=== PATIENT | female | born 1995 | race Two or more races ===

== ENCOUNTER 2024-12-05 13:36 | Emergency (ER) | payer BC, SELFPAY ==
--- NOTE | ~2024-12-05 | US_ITS ---
EXAMINATION: US OBSTETRICAL ULTRASOUND CLINICAL INFORMATION: Early , pelvic pain, rule out ectopic. COMPARISON: None available. LMP: 10/17/2024.. Gestational age by maternal dates is 5 weeks and 6 days. Estimated date of delivery by maternal dates is 08/01/2025. TECHNIQUE: Ultrasound of the maternal pelvis is performed using transabdominal and transvaginal transducers. Transvaginal imaging is performed due to inadequate visualization transabdominally. M-mode Doppler is also performed. FINDINGS: There is a single intrauterine gestational sac with visible yolk sac, embryo/fetus, and cardiac activity. There is no significant subchorionic hemorrhage or hematoma. HR: 122 beats per minute. CRL (crown rump length): 0.50 cm (6 weeks and 2 days, +/- 4 days). BARB = 07/29/2025. MATERNAL ADNEXA: The right maternal ovary measures 4.8 x 3.7 x 2.1 cm. Volume = 19.3 mL. Normal sonographic appearance. The left maternal ovary measures 2.9 x 2.7 x 1.3 cm. Volume = 5.4 mL. Normal sonographic appearance. There is no significant maternal adnexal mass. Trace fluid in the cul-de-sac, likely physiologic. US/US OB pelvic and transvaginal IMPRESSION: 1. Single intrauterine gestation with ultrasound gestational age of 6 weeks and 2 days, +/- 4 days. 2. Estimated date of delivery is 07/29/2025, +/- 4 days. 3. No maternal adnexal mass or significant pelvic ascites. Electronically signed by: Chuy Delacruz MD 12/05/2024 04:29 PM [facility]
[2024-12-05 14:09] VITALS: BP 105/59; PULSE 86; RESP 18; TEMP 37.2; O2SAT 99; BMI 19.6
--- NOTE | 2024-12-05 14:12 | ED_ITS ---
HPI - Abdominal Pain General Chief Complaint: Abdominal Pain Stated Complaint: Abdominal Pain ? 4-5 Wks Preg Time Seen by Provider: 12/05/24 17:15 Source: patient Mode of arrival: ambulatory Limitations: no limitations History of Present Illness ED Provider: Dr. Jaleesa Wood HPI narrative: Patient comes to the emergency room accompanied by her . Patient states that her last menstrual period was 5 weeks ago, she has had a positive test, complaining of bilateral lower discomfort. However, patient states that she has ate [employer] and she felt much better and has no longer pain. Patient has been experiencing nausea, no significant vomiting or diarrhea. Patient denies any vaginal bleeding or spotting. To her knowledge, this is the 1st time that she is . Related Data Previous Rx's ?Medication ?Instructions ?Recorded acetaminophen 500 mg tablet 500 mg PO Q6H PRN fever or pain 12/05/24 #30 tabs doxylamine 10 mg-pyridoxine (vit 1 tab PO BID PRN nausea and 12/05/24 B6) 10 mg tablet,delayed release vomiting #60 tabs nitrofurantoin 100 mg PO Q12H 7 days #14 caps 12/05/24 monohydrate/macrocrystals 100 mg capsule (Macrobid) vitamins no.144-folic 2 tab PO DAILY #60 tabs 12/05/24 acid 400 mcg chewable tablet () Allergies Allergy/AdvReac Type Severity Reaction Status Date / Time shellfish derived [shellfish] Allergy Rash Verified 12/05/24 14:11 Review of Systems Review of Systems Constitutional : No Weight loss, No Fever, No Chills, No Night Sweats, No Fatigue, No Malaise ENT/Mouth : No Hearing loss, No Ear Pain, No Nasal Congestion, No Sinus Pain, No Hoarseness, No sore throat, No Rhinorrhea, No Swallowing Difficulty Eyes: No Eye Pain, No Swelling, No Redness, No Foreign Body, No Discharge, No Vision Changes Cardiovascular : No Chest Pain, No SOB, No Dyspnea on Exertion, No Orthopnea, No Edema, No Palpitations Respiratory : No Cough, No Sputum, No Wheezing, No Smoke Exposure, No Dyspnea Gastrointestinal : Complaining of Nausea, No Vomiting, No Diarrhea, No Constipation, complaining of mild bilateral abdominal discomfort, No Hematochezia, No Melena Genitourinary : Last menstrual period 5 weeks ago, No Dysuria, No Urinary Frequency, No Hematuria, No Urinary Incontinence, No Urgency, No Flank Pain, No Urinary Flow Changes, No Hesitancy Musculoskeletal : No joint pain, No Myalgias, No Joint Swelling Skin : No Skin Lesions, No rash Neuro : No Weakness, No Numbness, No Paresthesias, No Loss of Consciousness, No Dizziness, No Headache Psych : No Anxiety/Panic, No Depression, No SI/HI/AH/VH, No Social Issues, Heme/Lymph: No Bruising, No Bleeding,No Lymphadenopathy Endocrine : No Polyuria, No Polydipsia, No Temperature Intolerance [facility] Social History Social History Advance Directives: No Advance Directives Information Provided: Yes Do you have a plan to hurt others: No Plan Physical Exam ED Vital Signs: Vital Signs - 24 hr 12/05/24 14:09 12/05/24 17:27 Temperature 99 F 98.4 F Pulse Rate 86 78 Respiratory Rate 18 14 Blood Pressure 105/59 L 103/64 Pulse Oximetry 99 100 Oxygen Delivery Method Room Air Room Air BMI result Body Mass Index 19.6 Const Other: Appearance: Alert. Oriented X3. No acute distress. Eyes: Pupils equal, round and reactive to light. ENT: Pharynx normal. Neck: Normal inspection. Neck supple. No lymph nodes noted. No crepitus CVS: Normal heart rate and rhythm. Pulses normal. Normal S1 and S2 Respiratory: No respiratory distress. Breath sounds normal. No Wheezing. No rales Abdomen: Soft and nontender. No rigidity. No distention. Skin: Skin warm and dry. Normal skin color. Normal skin turgor. Extremities: No lower extremity edema. No Lacerations. No Rash Neuro: Oriented X 3. No motor deficit. No sensory deficit. Moving all extremities. No slurred speech. CN 2 through 12 grossly intact Psych: calm, cooperative, normal affect Course Course Course Narrative: This is a rapid medical exam performed by Florence De La O PA-C. The patient is a 29-year-old female we will self report of positive on home test, with last menstrual period being 5 weeks ago, who presents with lower abdominal pain for 2 weeks. Denies vaginal discharge or bleeding, associated dysuria. Patient has yet to establish care, she has not had verification of . We will be screening basic labs a urinalysis a beta hCG, and a transvaginal ultrasound. The patient is stable and can return to the waiting room pending her full medical assessment. Medical Decision Making Medical Decision Making [facility] Narrative: My interpretation of labs: No significant abnormality in patient's hematology and chemistry, urinalysis positive for UTI. HCG 70,179 Ultrasound shows an intrauterine , estimated gestational age 6 weeks and 4 days Patient denies any vaginal bleeding or spotting. Patient states that after she ate foot from [employer] and now she feels well and not having any abdominal pain Differential Diagnosis Differential Diagnoses: The differential diagnosis associated with the presentation includes (Intrauterine , ectopic ) Lab Data [facility] Lab Attestation statement: I reviewed the patient's lab results. 12/05/24 14:46 12/05/24 14:46 Labs: Lab Results 12/05/24 Range/Units 14:46 WBC 6.1 (4.8-10.8) X10*3/uL RBC 3.99 L (4.20-5.50) X10*6/uL Hgb 12.0 (12.0-16.0) g/dl Hct 36.1 L (37.0-47.0) % MCV 90.5 (80.0-98.0) fL MCH 30.1 (27.0-33.0) pg MCHC 33.2 (31.0-35.0) g/dl RDW 14.7 (11.0-16.0) % Plt Count 205 (160-400) X10*3/uL MPV 8.5 L (9.4-12.3) fL Immature Gran % (Auto) 0.5 H (0.0-0.4) % Neut % (Auto) 73.9 H (45-73) % Lymph % (Auto) 15.8 L (20-40) % Mason % (Auto) 9.0 (2-11) % Eos % (Auto) 0.5 (0-4) % Baso % (Auto) 0.3 (0-2) % Lymph # (Auto) 1.0 L (1.2-4.9) X10*3/uL Mason # (Auto) 0.6 (0.1-1.2) X10*3/uL Eos # (Auto) 0.0 (0.0-0.4) X10*3/uL Baso # (Auto) 0.0 (0.0-0.2) X10*3/uL Abs Immat Gran (auto) 0.03 (0.00-0.03) X10*3/uL Absolute Neuts (auto) 4.5 (2.0-8.3) x10*3/uL Absolute Nucleated RBC 0.000 (0.0-0.012) X10*3/uL Nucleated RBC % (auto) 0.0 (0.0-0.2) /100WBC Sodium 137 (135-145) mmol/L Potassium 3.9 (3.3-5.1) mmol/L Chloride 102 (96-108) mmol/L Carbon Dioxide 24 (22-29) mmol/L Anion Gap 15 (12-20) BUN 8 L (9-16) mg/dL Creatinine 0.60 (0.5-1.4) mg/dL Estim Creat Clear Calc 95.2 Estimated GFR > 60 Random Glucose 90 (60-115) mg/dL Calcium 9.1 (8.4-10.2) mg/dL Magnesium 2.1 (1.6-2.6) mg/dL Total Bilirubin 0.4 (0.0-1.0) mg/dL AST 18 (5-31) U/L ALT 16 (0-31) U/L Alkaline Phosphatase 68 (39-117) U/L Total Protein 7.3 (6.5-8.0) g/dL Albumin 4.3 (3.5-5.0) g/dL Beta HCG, Quant 81917 mIU/mL Urine Color Yellow Urine Appearance Turbid Urine pH 8.5 (5.0-9.0) Ur Specific [place] 1.015 (1.005-1.025) Urine Protein Negative (Neg-Trace) mg/dL Urine Glucose (UA) Negative (Negative) mg/dL Urine Ketones Negative (Negative) mg/dL Urine Blood Trace H (Negative) Urine Nitrite Negative (Negative) Ur Leukocyte Esterase Trace H (Negative) Urine RBC >20 H (0-2) /HPF Urine WBC 0-5 (0-5) /HPF Ur Squamous Epith Cells 0-2 (0-2) /HPF Urine Bacteria None Seen (None Seen) Hyaline Casts 0-2 (0-2) /LPF Independent Interpretation I performed an independent interpretation of an: Ultrasound Radiology Impression Discussion of test interpretation with radiology: I have reviewed the radiologist's reading. Radiologist Impression: The right maternal ovary measures 4.8 x 3.7 x 2.1 cm. Volume = 19.3 mL. Normal sonographic appearance. The left maternal ovary measures 2.9 x 2.7 x 1.3 cm. Volume = 5.4 mL. Normal sonographic appearance. There is no significant maternal adnexal mass. Trace fluid in the cul-de-sac, likely physiologic. US/US OB pelvic and transvaginal IMPRESSION: 1. Single intrauterine gestation with ultrasound gestational age of 6 weeks and 2 days, +/- 4 days. 2. Estimated date of delivery is 07/29/2025, +/- 4 days. 3. No maternal adnexal mass or significant pelvic ascites. Discharge Plan Discharge Clinical Impression: Patient Disposition: Home, Self-Care Instructions: (ED) Additional Instructions: Please follow-up with your primary care physician tomorrow. If you have any worsening or new symptoms, please return to the emergency room or call 911 Prescriptions: New 400 mcg tablet,chewable 2 tab PO DAILY Qty: 60 2RF doxylamine-pyridoxine (vit B6) 10-10 mg tablet,delayed release (DR/EC) 1 tab PO BID PRN (Reason: nausea and vomiting) Qty: 60 0RF nitrofurantoin monohyd/m-cryst [Macrobid] 100 mg capsule 100 mg PO Q12H 7 Days Qty: 14 0RF Rx Instructions: must administer with a meal/food acetaminophen 500 mg tablet 500 mg PO Q6H PRN (Reason: fever or pain) Qty: 30 0RF Referrals: Brian Salguero MD [Physician] - 12/08/24 Print Language: Occitan
[2024-12-05 14:58] LABS: MANUAL DIFF FLAG NO
[2024-12-05 15:00] LABS: Basophils Percent Auto 0.3 % (0-2); Eosinophils Percent Auto 0.5 % (0-4); Hematocrit 36.1 % (37.0-47.0); Imm Gran Abs Auto 0.03 X10*3/uL (0.00-0.03); Imm Gran Pct Auto 0.5 % (0.0-0.4); Lymphocytes Percent Auto 15.8 % (20-40); Mean Corpuscular HGB Conc 33.2 g/dl (31.0-35.0); Mean Corpuscular Hemoglobin 30.1 pg (27.0-33.0); Mean Corpuscular Volume 90.5 fL (80.0-98.0); Mean Platelet Volume 8.5 fL (9.4-12.3); Monocytes Absolute Auto 0.6 X10*3/uL (0.1-1.2); Neutrophils Absolute Auto 4.5 x10*3/uL (2.0-8.3); Neutrophils Percent Auto 73.9 % (45-73); Platelet Count 205 X10*3/uL (160-400); Red Blood Count 3.99 X10*6/uL (4.20-5.50); Red Cell Distribution Width 14.7 % (11.0-16.0); White Blood Count 6.1 X10*3/uL (4.8-10.8)
[2024-12-05 15:04] LABS: Appearance Urine Turbid; Color Urine Yellow; Glucose Urine UA Negative (Negative); Leukocyte Esterase Urine Trace (Negative); Nitrite Urine Negative (Negative); PH 8.5 (5.0-9.0); Specific Gravity - Urine 1.015 (1.005-1.025); UMIC TRIGGER UACC YES; Urine Blood Trace (Negative); Urine Ketones Negative (Negative); Urine Protein Negative (Neg-Trace)
[2024-12-05 15:06] LABS: Bacteria Urine None Seen (None Seen); Hyaline Casts Urine 0-2 /LPF (0-2); RBC Urine >20 /HPF (0-2); Squamous Epithelial Cell Urine 0-2 /HPF (0-2); WBC Urine 0-5 /HPF (0-5)
[2024-12-05 15:19] LABS: Alanine Aminotransferase 16 U/L (0-31); Albumin Level 4.3 g/dL (3.5-5.0); Alkaline Phosphatase 68 U/L (39-117); Anion Gap 15 (12-20); Aspartate Amino Transferase 18 U/L (5-31); Bilirubin Total 0.4 mg/dL (0.0-1.0); Blood Urea Nitrogen 8 mg/dL (9-16); Calcium 9.1 mg/dL (8.4-10.2); Carbon Dioxide 24 mmol/L (22-29); Chloride 102 mmol/L (96-108); Creatinine Clr Calc Pharmacy 95.2; Estimated Glomerular Filt Rate > 60; Glucose Random 90 mg/dL (60-115); Magnesium 2.1 mg/dL (1.6-2.6); Potassium 3.9 mmol/L (3.3-5.1); Sodium 137 mmol/L (135-145); Total Protein 7.3 g/dL (6.5-8.0)
[2024-12-05 15:45] LABS: HCG Quantitative 70179 mIU/mL
--- OUTSIDE RECORDS SUMMARY | 2024-12-05 17:15 | XMS_ITS | Clinical Summary ---
[facility] [address] [place] [address] Care Team Providers Care Hvac Sales Representative Name Role Phone Unavailable Primary Care Provider Unavailabl e Social History Tobacco Use Types Packs/Day Years Used Date Smoking Tobacco: Never Assessed Sex and Gender Information Value Date Recorded Sex Assigned at Not on file Gender Identity Not on file Sexual Orientation Not on file Plan of Treatment Health Maintenance Due Date Last Done Comments DTaP,Tdap,and Td Vaccines (1 - Tdap) 2015 Hepatitis B Vaccines (1 of 3 - 19+ 3-dose series) 2015 Cervical Cancer Screening: P ap Smear 2017 COVID-19 Vaccine (2023-2 5 season) 2024 Influenza Vaccine (#1) 2024 HIB Vaccines Aged Out No longer eligi ble based on patient's age to complete this topic HPV Vaccines Aged Out No longer eligi ble based on patient's age to complete this topic Hepatitis A Vaccines Aged Out No long er eligible based on patient's age to complete this topic IPV Vaccines Aged Out No longer eligi ble based on patient's age to complete this topic MMR Vaccines Aged Out No longer eligi ble based on patient's age to complete this topic Meningococcal ACWY Vaccine Aged Out N o longer eligible based on patient's age to complete this topic Pneumococcal Vaccine: Pediat rics (0 to 5 Years) and At-Risk Patients (6 to 64 Years) Aged Out No longer eligible b ased on patient's age to complete this topic RSV Immunization Patients Un bryon 20 months Aged Out No longer eligible b ased on patient's age to complete this topic Varicella Vaccines Aged Out No longer eligible based on patient's age to complete this topic
[2024-12-05 17:27] VITALS: BP 103/64; PULSE 78; RESP 14; TEMP 36.9; O2SAT 100
[2024-12-05] MEDS: Nitrofurantoin Monohyd/M-Cryst 100 MG CAPSULE PO (18:41)
[2024-12-05] MEDS: Acetaminophen 325 MG TABLET 650 MG PO (18:41)
[2024-12-05 18:49] VITALS: BP 103/64; PULSE 78; RESP 14; TEMP 36.9; O2SAT 100
== END 2024-12-05 18:49 | disposition home or self-care (01) ==
PROVIDERS: Physician Assistant Medical; Emergency Provider Emergency Medicine
DX: O26.91 Pregnancy related conditions, unspecified, first trimester (principal); Z3A.01 Less than 8 weeks gestation of pregnancy; R10.2 Pelvic and perineal pain; Z79.899 Other long term (current) drug therapy
CPT/HCPCS: 36415; 76801; 76817; 80053; 81001; 81003; 83735; 84702; 85025; 99283; 99284

== ENCOUNTER 2024-12-07 22:09 | Emergency (ER) | payer BC, SELFPAY ==
--- NOTE | ~2024-12-07 | US_ITS ---
CLINICAL HISTORY: Right flank pain radiating to RLQ R US Renal Comparison: None Findings: Right kidney normal size and echotexture, 10.6 cm length. 3 mm midpole calculus. Left kidney normal size and echotexture, 10.4 cm length. 4 mm lower pole calculus. Mild right hydronephrosis. No left hydronephrosis. Normal color Doppler Ureteral jets are noted bilaterally within the bladder. IMPRESSION: There are tiny bilateral renal calculi. Mild right hydronephrosis. This document has been electronically signed by: Joao Pino MD on 12/08/2024 06:09:13
[2024-12-07 23:31] VITALS: BP 145/67; PULSE 105; RESP 22; TEMP 36.3; O2SAT 100; BMI 26.3
[2024-12-08 00:07] LABS: Hematocrit 35.2 % (37.0-47.0); Hemoglobin 11.9 g/dl (12.0-16.0); Mean Corpuscular HGB Conc 33.8 g/dl (31.0-35.0); Mean Corpuscular Hemoglobin 30.7 pg (27.0-33.0); Mean Platelet Volume 8.9 fL (9.4-12.3); Platelet Count 204 X10*3/uL (160-400); Red Blood Count 3.87 X10*6/uL (4.20-5.50); Red Cell Distribution Width 14.7 % (11.0-16.0); White Blood Count 13.7 X10*3/uL (4.8-10.8)
[2024-12-08 00:21] LABS: Alanine Aminotransferase 15 U/L (0-31); Albumin Level 4.5 g/dL (3.5-5.0); Alkaline Phosphatase 65 U/L (39-117); Anion Gap 14 (12-20); Aspartate Amino Transferase 21 U/L (5-31); Bilirubin Total 0.4 mg/dL (0.0-1.0); Blood Urea Nitrogen 9 mg/dL (9-16); Calcium 9.1 mg/dL (8.4-10.2); Carbon Dioxide 19 mmol/L (22-29); Chloride 107 mmol/L (96-108); Creatinine Clr Calc Pharmacy 93.5; Estimated Glomerular Filt Rate > 60; Glucose Random 122 mg/dL (60-115); Potassium 3.7 mmol/L (3.3-5.1); Sodium 136 mmol/L (135-145); Total Protein 7.7 g/dL (6.5-8.0)
[2024-12-08 01:56] LABS: Appearance Urine Cloudy; Color Urine Dark Yellow; Glucose Urine UA Negative (Negative); Leukocyte Esterase Urine Negative (Negative); Nitrite Urine Negative (Negative); PH 5.5 (5.0-9.0); Specific Gravity - Urine 1.025 (1.005-1.025); UMIC TRIGGER UACC YES; Urine Blood Large (3+) (Negative); Urine Ketones >=160 mg/dL (Negative); Urine Pregnancy POSITIVE (NEGATIVE); Urine Protein 30 (1+) mg/dL (Neg-Trace)
[2024-12-08 01:57] LABS: UPreg QC Valid YES
[2024-12-08 02:01] LABS: Bacteria Urine None Seen (None Seen); Hyaline Casts Urine 0-2 /LPF (0-2); RBC Urine >20 /HPF (0-2); UACC Culture Trigger YES
--- NOTE | 2024-12-08 04:44 | ED.ABDPAIN ---
HPI - Abdominal Pain General Chief Complaint: Abdominal Pain Stated Complaint: abdominal pain Time Seen by Provider: 12/08/24 04:23 Source: patient and other (Boyfriend) Mode of arrival: ambulatory Limitations: no limitations History of Present Illness ED Provider: Dr. Patrick Elliott HPI narrative: 29-year-old female history of ovarian cyst, kidney stones, 6 weeks, 4 days , ultrasound 12/05/2024 revealed single intrauterine 6 weeks 2 days, presents emergency department for evaluation of severe right flank pain radiating to her right lower quadrant area, with sudden onset at 21:00 hours. She describes the pain as a severe, twisting sensation which is 10 out of 10 at its worst. Pain was associated with nausea and she had at least 5 episodes of vomiting. Patient states she was had dysuria and urinary frequency. The patient was seen in the emergency department on 12/05/2023 and diagnosed with urinary tract infection. She was started on Macrobid 100 mg q.12 hours x7 days, vitamin B6 and vitamins. She states that she was not felt better since taking the antibiotics. Related Data Previous Rx's ?Medication ?Instructions ?Recorded acetaminophen 500 mg tablet 500 mg PO Q6H PRN fever or pain 12/05/24 #30 tabs doxylamine 10 mg-pyridoxine (vit 1 tab PO BID PRN nausea and 12/05/24 B6) 10 mg tablet,delayed release vomiting #60 tabs nitrofurantoin 100 mg PO Q12H 7 days #14 caps 12/05/24 monohydrate/macrocrystals 100 mg capsule (Macrobid) vitamins no.144-folic 2 tab PO DAILY #60 tabs 12/05/24 acid 400 mcg chewable tablet () metoclopramide HCl 10 mg tablet 10 mg PO Q6H PRN nausea and 12/08/24 (Reglan) vomiting #30 tabs morphine 15 mg immediate release 15 mg PO Q4-6H PRN pain #14 tabs 12/08/24 tablet Allergies Allergy/AdvReac Type Severity Reaction Status Date / Time shellfish derived [shellfish] Allergy Rash Verified 12/07/24 23:34 Review of Systems Review of Systems Yes all other systems are reviewed and are negative Physical Exam ED Vital Signs: Vital Signs - 24 hr 12/08/24 09:30 Temperature 98.9 F Pulse Rate 81 Respiratory Rate 16 Blood Pressure 101/51 L Pulse Oximetry 98 Oxygen Delivery Method Room Air BMI result Body Mass Index 26.3 Vital signs revealed an elevated heart rate of 105 and elevated respiratory rate 22 and an elevated blood pressure of 145/67. Exam: General: Awake, alert in no distress Head: Normocephalic, atraumatic EENT: PERRL, Lids normal, sclera normal, conjunctiva normal, nose normal , ears normal, throat without erythema or exudates Neck: Supple, no adenopathy Lung: breath sounds symmetric, no wheezing, rales or rhonchi Chest: symmetric movement, nontender Heart: regular rate and rhythm, normal S1, S2 no murmurs or rubs Abdomen: Moderate right lower quadrant tenderness, no rebound, no voluntary or involuntary guarding, normoactive bowel sounds. Back: no vertebral tenderness, no CVAT Extremities: no deformities, moves all extremities symmetrically Neuro: Awake, alert, oriented, normal speech, cranial nerves intact, moves all extremities symmetrically Psych: Pleasant, cooperative Medical Decision Making Medical Decision Making MDM Narrative: 29-year-old female history of ovarian cyst, kidney stones, 6 weeks, 4 days , ultrasound 12/05/2024 revealed single intrauterine 6 weeks 2 days, presents emergency department for evaluation of severe right flank pain radiating to her right lower quadrant area, with sudden onset at 21:00 hoursAssociated with nausea, vomiting, multiple episodes on emesis, urinary frequency and dysuria. The patient was seen in the emergency department on 12/05/2025, diagnosed with UTI and is taking Macrobid with no improvement of her symptoms. Physical examination did reveal right CVA tenderness and right lower quadrant tenderness. Differential diagnosis: Includes but is not limited to urinary tract infection, pyelonephritis, renal colleague, ureteral colic, ureteral stone Course: My independent interpretation patient's laboratory evaluation is as follows: WBC elevated 13,700. Normocytic anemia with an H&H of 11.9 and 35.2. Serum bicarb low at 19. Glucose elevated 122. LFTs were normal. Urinalysis was positive for blood and leukocyte esterase. Microscopic revealed greater than 20 RBCs, no WBCs and no bacteria. Urinalysis is suggestive of ureteral stone. The patient was quantitative beta-hCG the did increased significantly from 2 days prior which is reassuring. the patient's ultrasound did reveal mild right hydronephrosis with bilateral kidney stones. Patient was presentation is consistent with right-sided ureteral stone with mild hydronephrosis. Patient was having 10/10 pain and was treated with morphine 4 mg IV with complete resolution of her pain The patient was treated with normal saline IV x1 L, morphine 4 mg IV, Reglan 10 mg IV and Benadryl 25 mg IV. The patient had complete resolution of her pain. I did discuss the patient's presentation over tiger text with the covering urologist, Dr. Josi Velazquez. She recommended he management, increased fluid intake with frequent urination. She will follow the patient up in her office. I did discuss the diagnosis, laboratory evaluation and follow-up plan with the patient and the patient was discharged home. She was prescribed Reglan 10 mg every 6-8 hours as needed for nausea or vomiting. She was advised to take Tylenol for pain and for pain not relieved by Tylenol she was prescribed morphine 15 mg every 6 hours as needed for pain. Patient was advised to call the urologist's office and the OBGYN group today to make follow-up appointments. She was given printed and verbal instructions on ureteral stones, how to strain the urine and discharged home and Admission/Observation Consideration of admission/observation: Escalation of care including admission/observation considered (Yes) Consult Healthcare Provider Management of the patient was discussed with: [employer] ( urologist, Dr. Goodman) Lab Data MDM Lab Attestation statement: I reviewed the patient's lab results. 12/08/24 00:02 12/08/24 00:02 Labs: Lab Results 12/08/24 12/08/24 Range/Units 00:02 01:47 WBC 13.7 H (4.8-10.8) X10*3/uL RBC 3.87 L (4.20-5.50) X10*6/uL Hgb 11.9 L (12.0-16.0) g/dl Hct 35.2 L (37.0-47.0) % MCV 91.0 (80.0-98.0) fL MCH 30.7 (27.0-33.0) pg MCHC 33.8 (31.0-35.0) g/dl RDW 14.7 (11.0-16.0) % Plt Count 204 (160-400) X10*3/uL MPV 8.9 L (9.4-12.3) fL Absolute Nucleated RBC 0.000 (0.0-0.012) X10*3/uL Nucleated RBC % (auto) 0.0 (0.0-0.2) /100WBC Sodium 136 (135-145) mmol/L Potassium 3.7 (3.3-5.1) mmol/L Chloride 107 (96-108) mmol/L Carbon Dioxide 19 L (22-29) mmol/L Anion Gap 14 (12-20) BUN 9 (9-16) mg/dL Creatinine 0.70 (0.5-1.4) mg/dL Estim Creat Clear Calc 93.5 Estimated GFR > 60 Random Glucose 122 H (60-115) mg/dL Calcium 9.1 (8.4-10.2) mg/dL Total Bilirubin 0.4 (0.0-1.0) mg/dL AST 21 (5-31) U/L ALT 15 (0-31) U/L Alkaline Phosphatase 65 (39-117) U/L Total Protein 7.7 (6.5-8.0) g/dL Albumin 4.5 (3.5-5.0) g/dL Lipase 20 (8-78) U/L Beta HCG, Quant 621548 mIU/mL Urine Color Dark Yellow Urine Appearance Cloudy Urine pH 5.5 (5.0-9.0) Ur Specific [place] 1.025 (1.005-1.025) Urine Protein 30 (1+) H (Neg-Trace) mg/dL Urine Glucose (UA) Negative (Negative) mg/dL Urine Ketones >=160 (Negative) mg/dL Urine Blood Large (3+) H (Negative) Urine Nitrite Negative (Negative) Ur Leukocyte Esterase Negative (Negative) Urine RBC >20 H (0-2) /HPF Urine WBC 6-10 H (0-5) /HPF Ur Squamous Epith Cells 3-5 (0-2) /HPF Urine Bacteria None Seen (None Seen) Hyaline Casts 0-2 (0-2) /LPF Urine Test POSITIVE H (NEGATIVE) Radiology Impression Discussion of test interpretation with radiology: I discussed test interpretation with the radiologist Radiologist Impression: US Renal Comparison: None Findings: Right kidney normal size and echotexture, 10.6 cm length. 3 mm midpole calculus. Left kidney normal size and echotexture, 10.4 cm length. 4 mm lower pole calculus. Mild right hydronephrosis. No left hydronephrosis. Normal color Doppler Ureteral jets are noted bilaterally within the bladder. IMPRESSION: There are tiny bilateral renal calculi. Mild right hydronephrosis. This document has been electronically signed by: Joao Pino MD on 12/08/2024 06:09:13 Dictated By: Joao Pino MD Independent Historian Clinical information obtained from an independent historian. History obtained from or confirmed by: Spouse ( significant other) External Record Review External record reviewed: Other ( previous ED record and laboratory evaluation) Prescription Management I considered prescription management with: Pain Medication and Other ( antiemetics: Reglan) Chronic Conditions Patient?s care impacted by: Other ( 1st trimester ) Medications Administered Discontinued Medications Generic Name Dose Route Start Last Admin Trade Name Freq PRN Reason Stop Dose Admin Diphenhydramine HCl 25 mg 12/08/24 04:44 12/08/24 05:03 Diphenhydramine Hcl 50 Mg/Ml Vial IVPUSH 12/08/24 04:45 25 mg ONCE ONE Administration Sodium Chloride 1,000 mls @ 999 mls/hr 12/08/24 04:44 12/08/24 07:00 Ns IV 12/08/24 05:44 Infused .Q1H1M STA Infusion Metoclopramide HCl 10 mg 12/08/24 04:44 12/08/24 05:03 Metoclopramide Hcl 10 Mg/2 Ml Vial IVPUSH 12/08/24 04:45 10 mg ONCE STA Administration Morphine Sulfate 4 mg 12/08/24 04:44 12/08/24 05:03 Morphine Sulfate 4 Mg/Ml Cartridge IVPUSH 12/08/24 04:45 4 mg ONCE STA Administration Protocol Discharge Plan Discharge Clinical Impression: Renal colic on right side, Hydronephrosis of right kidney, First trimester Patient Disposition: Home, Self-Care Instructions: Kidney Stones (ED), How to Strain Your Urine (ED) Additional Instructions: Your blood work was unremarkable Your urine did reveal red blood cells but no bacteria. This is more consistent with a kidney stone they and a urine infection, but I want you to finish the antibiotic that was prescribed for you. The ultrasound did reveal swelling of your right kidney (hydronephrosis) and kidney stones in both kidneys At this time I suspect that you had a stone in your right kidney and the stone is now in the tube that connects the kidney to the bladder (ureteral stone). Take Tylenol (acetaminophen) 2 pills every 6 hours as needed for pain. For pain not relieved by Tylenol take morphine 15 mg pills, 1 pill every 6 hours as needed for pain. This medication will make you sleepy, do not drive or work while taking this medication. Morphine is a narcotic medication and can be addicting. If you are concerned about addiction you can ask the pharmacist for less pills or do not get this prescription filled. Take Reglan (metoclopramide) 10 mg pills, 1 pill every 6 hours as needed for nausea and vomiting. Increase your fluid intake so that you pee more frequently and can flush out the kidney stone Follow-up with our Urology (kidney stone doctor), within 1 week. Call our office today to make an appointment Also follow-up with our OBGYN group, Dr. Salguero for care. Call his office today to make an appointment Please return to the emergency department if your symptoms get worse or if you develop any symptoms that are concerning to you. Prescriptions: New morphine 15 mg tablet 15 mg PO Q4-6H PRN (Reason: pain) Qty: 14 0RF Rx Instructions: Patient may request partial fill; Partial Fill upon patient request. metoclopramide HCl [Reglan] 10 mg tablet 10 mg PO Q6H PRN (Reason: nausea and vomiting) Qty: 30 0RF No Action 400 mcg tablet,chewable 2 tab PO DAILY Qty: 60 2RF doxylamine-pyridoxine (vit B6) 10-10 mg tablet,delayed release (DR/EC) 1 tab PO BID PRN (Reason: nausea and vomiting) Qty: 60 0RF nitrofurantoin monohyd/m-cryst [Macrobid] 100 mg capsule 100 mg PO Q12H 7 Days Qty: 14 0RF Rx Instructions: must administer with a meal/food acetaminophen 500 mg tablet 500 mg PO Q6H PRN (Reason: fever or pain) Qty: 30 0RF Referrals: Rahul Goodman MD [Physician] - 1 week (Mild right hydronephrosis, bilateral renal stones, right flank and right lower quadrant, 6 weeks ) Brian Salguero MD [Physician] - 1 week (, 6 weeks prior needs care) Interventions: ED Discharge Assessment Last Done: 12/08/24 09:30 Discharge Date/Time: 12/08/24 09:31 Print Language: Libyan
[2024-12-08] MEDS: 0.9 % Sodium Chloride 1,000 ML 999 ML IV (04:59)
[2024-12-08] MEDS: Metoclopramide HCl 10 MG/2 ML VIAL IVPUSH (05:03)
[2024-12-08] MEDS: diphenhydrAMINE HCL 50 MG/ML VIAL 25 MG IVPUSH (05:03)
[2024-12-08] MEDS: Morphine Sulfate 4 MG/ML CARTRIDGE IVPUSH (05:03)
[2024-12-08 05:11] LABS: Lipase 20 U/L (8-78)
[2024-12-08 05:37] LABS: HCG Quantitative 132014 mIU/mL
[2024-12-08 06:02] VITALS: BP 101/51; PULSE 81; RESP 16; TEMP 37.2; O2SAT 98
[2024-12-08 09:30] VITALS: BP 101/51; PULSE 81; RESP 16; TEMP 37.2; O2SAT 98
== END 2024-12-08 09:31 | disposition home or self-care (01) ==
PROVIDERS: Emergency Provider Emergency Medicine Emergency Medical Services
DX: O99.891 Other specified diseases and conditions complicating pregnancy (principal); N13.30 Unspecified hydronephrosis; Z3A.01 Less than 8 weeks gestation of pregnancy; N23 Unspecified renal colic
CPT/HCPCS: 36415; 76775; 80053; 81001; 81025; 83690; 84702; 85027; 87086; 96361; 96374; 96375; 99283; 99284; J1200; J2270; J2765

== ENCOUNTER → 2024-12-08 04:44 | Outpatient (BNV) | payer BC, SELFPAY | PROVIDERS: Emergency Provider Emergency Medicine Emergency Medical Services; Visit Provider Radiology Vascular & Interventional Radiology | DX: R10.31 Right lower quadrant pain (principal) | CPT/HCPCS: 76775 ==

== ENCOUNTER 2025-02-01 14:04 | Emergency (ER) | payer OTHER, SELFPAY ==
[2025-02-01 14:06] VITALS: BP 110/67; PULSE 98; RESP 18; TEMP 36.3; O2SAT 98; BMI 21.0
--- NOTE | 2025-02-01 14:06 | ED_ITS ---
HPI - General Adult General Chief complaint: General Medical Stated complaint: 14 wks , vomiting Time Seen by Provider: 02/01/25 15:02 Source: patient Limitations: no limitations History of Present Illness HPI narrative: 29-year-old female, , approximately 14 weeks single gestation, returns to the emergency department for evaluation of nausea and vomiting. Patient reports that she has had persistent nausea and vomiting throughout her that has been waxing waning in intensity. She has had multiple emergency department visits to [facility], [facility] and [facility]. She was scheduled or follow-up at [facility] this . She is currently on Unisom as well as doxylamine which has offered fair relief of her symptoms. She has had multiple small meals. Today she felt as though the nausea was much worse. She has had minimal p.o. intake today. She denies any abdominal pain. She denies any vaginal discharge bleeding or spotting. No urinary symptoms. Related Data Previous Rx's ?Medication ?Instructions ?Recorded acetaminophen 500 mg tablet 500 mg PO Q6H PRN fever or pain 12/05/24 #30 tabs doxylamine 10 mg-pyridoxine (vit 1 tab PO BID PRN nausea and 12/05/24 B6) 10 mg tablet,delayed release vomiting #60 tabs nitrofurantoin 100 mg PO Q12H 7 days #14 caps 12/05/24 monohydrate/macrocrystals 100 mg capsule (Macrobid) vitamins no.144-folic 2 tab PO DAILY #60 tabs 12/05/24 acid 400 mcg chewable tablet () metoclopramide HCl 10 mg tablet 10 mg PO Q6H PRN nausea and 12/08/24 (Reglan) vomiting #30 tabs Allergies Allergy/AdvReac Type Severity Reaction Status Date / Time shellfish derived [shellfish] Allergy Rash Verified 02/01/25 14:09 Review of Systems 2 Respiratory: Respiratory: Denies cough Gastrointestinal: Gastrointestinal: Denies bloating and Denies GI cramping Genitourinary: Genitourinary: Denies difficulty voiding PMFSH Social History Social History Advance Directives: No Advance Directives Information Provided: Yes Do you have a plan to hurt others: No Plan Physical Exam ED Vital Signs: Vital Signs - 24 hr 02/01/25 14:06 02/01/25 15:05 02/01/25 16:00 Temperature 97.4 F 98.1 F Pulse Rate 98 99 92 Respiratory Rate 18 16 14 Blood Pressure 110/67 99/64 94/55 L Pulse Oximetry 98 98 98 Oxygen Delivery Method Room Air Room Air 02/01/25 18:00 02/01/25 18:34 Temperature 98.0 F Pulse Rate 106 H 106 H Respiratory Rate 16 16 Blood Pressure 95/55 L 95/55 L Pulse Oximetry 98 98 Oxygen Delivery Method Room Air BMI result Body Mass Index 21.0 Const General: cooperative HENMT Other: Mucous membranes dry. Resp Other: Lung sounds clear throughout, no wheezes rales or rhonchi Cardio Rate: regular rate Rhythm: regular rhythm GI Other: abdomen is soft and nontender. No peritoneal signs. No CVAT Extrem Other: no calf tenderness or pedal edema bilaterally Course Course Course Narrative: RME performed by Danielle Hatfield PA-C. Patient is a 29 year old assigned female at presenting to the emergency department with nausea and vomiting. Patient states that she has thrown up 4 times since 0800 this morning. Patient states that this is her 5th or 6th time coming to the ER for nausea and vomiting during . Patient states that she is taking medication for this and it is helpful but the symptoms continue. Patient states that she has been seen at [facility] for this. Detailed physical exam and review of systems are deferred to the fashion photographer. Labs ordered. Patient placed back in the waiting room pending room availability and results. Reevaluation(s) Reevaluation #1: 4:45 p.m. patient tolerated IV fluids and antiemetics. She reports that she is feeling well. UA is pending at this time. 6:25 p.m. patient resting comfortably at this time. Symptoms are well controlled. Urinalysis returned, glucose is noted however patient has received D5 1/2 normal saline. urinalysis without any infection. Reviewed all discharge instructions. Patient expresses understanding and has no further questions at this time. She will continue her current medications and follow up with her current OB appointment. Medications Administered Discontinued Medications Generic Name Dose Route Start Last Admin Trade Name Freq PRN Reason Stop Dose Admin Dextrose/Sodium Chloride 1,000 mls @ 0 mls/hr 02/01/25 15:15 02/01/25 17:15 D51/2ns IVCONT Infused .Q0M VERONICA Infusion Wide Open Metoclopramide HCl 10 mg 02/01/25 15:13 02/01/25 15:59 Metoclopramide Hcl 10 Mg/2 Ml Vial IVPUSH 02/01/25 15:14 10 mg ONCE ONE Administration Medical Decision Making Medical Decision Making [facility] Narrative: 29-year-old female , 14 weeks single gestation with persistent nausea and vomiting. Check labs, UA, IV fluids and antiemetics. 3:20 p.m. transabdominal ultrasound initial exam positive movement and heart rate. Differential Diagnosis Differential Diagnoses: The differential diagnosis associated with the presentation includes Hyperemesis gravidarum Nausea and vomiting in Dehydration Metabolic abnormality Lab Data [facility] Lab Attestation statement: I reviewed the patient's lab results. 02/01/25 14:15 02/01/25 14:15 Labs: Lab Results 02/01/25 02/01/25 Range/Units 14:15 17:25 WBC 11.1 H (4.8-10.8) X10*3/uL RBC 3.68 L (4.20-5.50) X10*6/uL Hgb 11.6 L (12.0-16.0) g/dl Hct 34.4 L (37.0-47.0) % MCV 93.5 (80.0-98.0) fL MCH 31.5 (27.0-33.0) pg MCHC 33.7 (31.0-35.0) g/dl RDW 15.1 (11.0-16.0) % Plt Count 220 (160-400) X10*3/uL MPV 8.7 L (9.4-12.3) fL Immature Gran % (Auto) 0.7 H (0.0-0.4) % Neut % (Auto) 85.0 H (45-73) % Lymph % (Auto) 8.5 L (20-40) % [place] % (Auto) 5.2 (2-11) % Eos % (Auto) 0.2 (0-4) % Baso % (Auto) 0.4 (0-2) % Lymph # (Auto) 0.9 L (1.2-4.9) X10*3/uL [place] # (Auto) 0.6 (0.1-1.2) X10*3/uL Eos # (Auto) 0.0 (0.0-0.4) X10*3/uL Baso # (Auto) 0.0 (0.0-0.2) X10*3/uL Abs Immat Gran (auto) 0.08 H (0.00-0.03) X10*3/uL Absolute Neuts (auto) 9.5 H (2.0-8.3) x10*3/uL Absolute Nucleated RBC 0.000 (0.0-0.012) X10*3/uL Nucleated RBC % (auto) 0.0 (0.0-0.2) /100WBC Sodium 134 L (135-145) mmol/L Potassium 3.6 (3.3-5.1) mmol/L Chloride 105 (96-108) mmol/L Carbon Dioxide 22 (22-29) mmol/L Anion Gap 11 L (12-20) BUN 9 (9-16) mg/dL Creatinine 0.61 (0.5-1.4) mg/dL Estim Creat Clear Calc 93.6 Estimated GFR > 60 Random Glucose 113 (60-115) mg/dL Calcium 8.9 (8.4-10.2) mg/dL Magnesium 1.9 (1.6-2.6) mg/dL Total Bilirubin 0.4 (0.0-1.0) mg/dL AST 46 H (5-31) U/L ALT 85 H (0-31) U/L Alkaline Phosphatase 76 (39-117) U/L Total Protein 6.8 (6.5-8.0) g/dL Albumin 4.0 (3.5-5.0) g/dL Urine Color Yellow Urine Appearance Clear Urine pH 6.0 (5.0-9.0) Ur Specific [place] 1.020 (1.005-1.025) Urine Protein Negative (Neg-Trace) mg/dL Urine Glucose (UA) >=1000 H (Negative) mg/dL Urine Ketones Negative (Negative) mg/dL Urine Blood Negative (Negative) Urine Nitrite Negative (Negative) Ur Leukocyte Esterase Negative (Negative) Urine RBC 0-2 (0-2) /HPF Urine WBC 0-5 (0-5) /HPF Ur Squamous Epith Cells 0-2 (0-2) /HPF Urine Bacteria None Seen (None Seen) Hyaline Casts 0-2 (0-2) /LPF Influenza Type A (PCR) NEGATIVE (Negative) Influenza Type B (PCR) NEGATIVE (Negative) RSV RNA Qual (PCR) NEGATIVE (Negative) SARS-CoV-2 RNA (RT-PCR) NEGATIVE (Negative) Discharge Plan Discharge Clinical Impression: Nausea and vomiting during Patient Disposition: Home, Self-Care Instructions: Nausea and Vomiting in (ED), Hyperemesis Gravidarum (ED) Additional Instructions: As discussed; Drink plenty of fluids. Frequent small meals. Continue current medications as directed. Follow-up with your OB appointment this week. Follow-up with your primary care provider. Call this week to schedule a follow- up appointment. Return to the emergency department if you have any worsening of symptoms, or any concerns. Get well soon! Prescriptions: Discontinued morphine 15 mg tablet 15 mg PO Q4-6H PRN (Reason: pain) Qty: 14 0RF Rx Instructions: Patient may request partial fill; Partial Fill upon patient request. No Action 400 mcg tablet,chewable 2 tab PO DAILY Qty: 60 2RF doxylamine-pyridoxine (vit B6) 10-10 mg tablet,delayed release (DR/EC) 1 tab PO BID PRN (Reason: nausea and vomiting) Qty: 60 0RF nitrofurantoin monohyd/m-cryst [Macrobid] 100 mg capsule 100 mg PO Q12H 7 Days Qty: 14 0RF Rx Instructions: must administer with a meal/food acetaminophen 500 mg tablet 500 mg PO Q6H PRN (Reason: fever or pain) Qty: 30 0RF metoclopramide HCl [Reglan] 10 mg tablet 10 mg PO Q6H PRN (Reason: nausea and vomiting) Qty: 30 0RF Interventions: ED Discharge Assessment Last Done: 02/01/25 18:34 Discharge Date/Time: 02/01/25 18:36 Print Language: Yi
[2025-02-01 14:22] LABS: MANUAL DIFF FLAG NO
[2025-02-01 14:30] LABS: Basophils Percent Auto 0.4 % (0-2); Eosinophils Percent Auto 0.2 % (0-4); Hematocrit 34.4 % (37.0-47.0); Hemoglobin 11.6 g/dl (12.0-16.0); Imm Gran Abs Auto 0.08 X10*3/uL (0.00-0.03); Imm Gran Pct Auto 0.7 % (0.0-0.4); Lymphocytes Absolute Auto 0.9 X10*3/uL (1.2-4.9); Lymphocytes Percent Auto 8.5 % (20-40); Mean Corpuscular HGB Conc 33.7 g/dl (31.0-35.0); Mean Corpuscular Hemoglobin 31.5 pg (27.0-33.0); Mean Corpuscular Volume 93.5 fL (80.0-98.0); Mean Platelet Volume 8.7 fL (9.4-12.3); Monocytes Absolute Auto 0.6 X10*3/uL (0.1-1.2); Monocytes Percent Auto 5.2 % (2-11); Neutrophils Absolute Auto 9.5 x10*3/uL (2.0-8.3); Platelet Count 220 X10*3/uL (160-400); Red Blood Count 3.68 X10*6/uL (4.20-5.50); Red Cell Distribution Width 15.1 % (11.0-16.0); White Blood Count 11.1 X10*3/uL (4.8-10.8)
[2025-02-01 14:39] LABS: Alanine Aminotransferase 85 U/L (0-31); Alkaline Phosphatase 76 U/L (39-117); Anion Gap 11 (12-20); Aspartate Amino Transferase 46 U/L (5-31); Bilirubin Total 0.4 mg/dL (0.0-1.0); Blood Urea Nitrogen 9 mg/dL (9-16); Calcium 8.9 mg/dL (8.4-10.2); Carbon Dioxide 22 mmol/L (22-29); Chloride 105 mmol/L (96-108); Creatinine Clr Calc Pharmacy 93.6; Estimated Glomerular Filt Rate > 60; Glucose Random 113 mg/dL (60-115); Magnesium 1.9 mg/dL (1.6-2.6); Potassium 3.6 mmol/L (3.3-5.1); Sodium 134 mmol/L (135-145); Total Protein 6.8 g/dL (6.5-8.0)
--- NOTE | 2025-02-01 15:02 | PC.NURSE ---
Patient presents from home, [facility] 14 weeks , has vomited 4 times today. has been to the ED 5 times recently. c/o RLQ and epigastric pain. Denies any spotting. feels unwell and has a diffiucult time functioning.
[2025-02-01 15:05] VITALS: BP 99/64; PULSE 99; RESP 16; TEMP 36.7; O2SAT 98
[2025-02-01 15:10] LABS: Influenza A PCR NEGATIVE (Negative); Influenza B PCR NEGATIVE (Negative); Resp Syncy Virus RNA Qual PCR NEGATIVE (Negative); SARS COV2 PCR INHOUSE NEGATIVE (Negative)
--- OUTSIDE RECORDS SUMMARY | 2025-02-01 15:46 | XMS_ITS | Clinical Summary ---
Author Organization [facility] Address [address] [place] [address] Phone Care Team Providers Care Supervising Film Or Videotape Editor Name Role Phone Physician, No Pcp Primary Care Provider Unavaila ble Allergies Active Allergy Reactions Criticality Noted Date Comments Shellfish Derived Anaphylaxis High 01/17/2025 Encounters Date Type Department Care Team Description 01/17/2025 6:20 PM EDT - 01/18/2025 2:24 AM EDT Emergency [facility] Emergency [address] [place] [address] 12 weeks gestation of (Primary Dx); Need for rhogam due to Rh negative mother Discharge Disposition: Home or Self Care from Last 3 Months Social History Tobacco Use Types Packs/Day Years Used Date Smoking Tobacco: Never Assessed Comments Yes Sex and Gender Information Value Date Recorded Sex Assigned at Female 01/17/2025 8:25 PM EDT Legal Sex Female 2:35 PM EST Gender Identity Female 01/17/2025 8:25 PM EDT Sexual Orientation Straight 01/17/2025 8: 25 PM EDT Obstetrics History Para Term AB IAB SAB Ectopic Multiple Livin g Live Births 1 Date Outcome GA Total Labor Labor/2nd/3rd Weight Sex Type Anes PTL Sally A1 A5 Name Clin Current Last Filed Vital Signs Vital Sign Reading Time Taken Comments Blood Pressure 94/56 01/18/2025 2:00 AM EDT Pulse 72 01/18/2025 2:00 AM EDT Temperature 36.8 ??C (98.2 ??F) 01/18/2025 2:00 AM ED T Respiratory Rate 18 01/18/2025 2:00 AM EDT Oxygen Saturation 98% 01/18/2025 2:00 AM EDT Inhaled Oxygen Concentration - - Weight 44.9 kg (99 lb) 01/17/2025 4:57 PM EDT Height 149.9 cm (4' 11 ) 01/17/2025 4:57 PM EDT Body Mass Index 20 01/17/2025 4:57 PM EDT Plan of Treatment Health Maintenance Due Date Last Done Comments DTaP,Tdap,and Td Vaccines (1 - Tdap) 2015 Hepatitis B Vaccines (1 of 3 - 19+ 3-dose series) 2015 Cervical Cancer Screening: P ap Smear 2017 COVID-19 Vaccine ( - 2023-2 5 season) 2024 Influenza Vaccine (#1) 2024 Depression Screening 01/17/2025 HIV Screening 01/17/2025 Hepatitis C Screening 01/17/2025 Social Influencers of Health Screening 01/17/2025 HIB Vaccines Aged Out No longer eligi [...] patient's age to complete this topic Meningococcal B Vacine Aged Out No lo nger eligible based on patient's age to complete this topic Pneumococcal Vaccine: Pediat rics (0 to 5 Years) and At-Risk Patients (6 to 64 Years) Aged Out No longer eligible b ased on patient's age to complete this topic RSV Immunization Patients Un bryon 20 months Aged Out No longer eligible b ased on patient's age to complete this topic Procedures Procedure Name Priority Date/Time Associated Diagnosis Comments ANTEPARTUM RHIG EVALUATION STAT 01/17/2025 9:32 PM EDT US OB LESS 14 WKS SINGLE OR FIRST GESTATION STAT 01/17/2025 7:29 PM EDT POC , URINE DIAGNOSTIC STAT 01/17/2025 6:36 PM EDT STEELE URINE CULTURE TUBE STAT 01/17/2025 5:58 PM EDT URINALYSIS WITH REFLEX MICROSCOPIC AND CULTURE STAT 01/17/2025 5:58 PM EDT URINALYSIS WITH REFLEX MICROSCOPIC AND CULTURE STAT 01/17/2025 5:58 PM EDT RECHECK ABORH Routine 01/17/2025 5:52 PM EDT KLEIHAUER-BETKE STAIN Add-On 01/17/2025 5:52 PM EDT CBC WITH AUTO DIFFERENTIAL STAT 01/17/2025 5:52 PM EDT HCG, QUANTITATIVE STAT 01/17/2025 5:5 2 PM EDT ABO RH STAT 01/17/2025 5:52 PM EDT COMPREHENSIVE METABOLIC PANEL STAT 01/17/2025 5:52 PM EDT CBC AND DIFFERENTIAL STAT 01/17/2025 5:52 PM EDT from Last 3 Months Results * Antepartum RhIG evaluation (01/17/2025 9:32 PM EDT) [facility] Signature Antibody Screen Negative 01/18/2025 12:42 AM EDT [facility] RhIG Candidate 1 Vial 300 mcg 01/18/2025 12:42 AM EDT [facility] Blood Venous blood specimen / Unknown Venipuncture / Unknown 01/17/2025 9:32 PM EDT 01/17/2025 10:13 PM EDT us Yolis UNDERWOOD LAB BLOOD BANK TEST ORDERABLES E dited Result - Final [facility] [address] [place] [address], [place] [phone] * US OB Less 14 Wks Single or First Gestation (01/17/2025 7:29 PM EDT) Anatomical Region Laterality Modality Body Ultrasound Impressions 01/17/2025 7:51 PM EDT 1. Single live intrauterine , EGA 12 weeks 4 days, based on today's ultrasound. BARB is 07/28/2025. This document has been electronically signed by: Sadie Velez MD on 01/17/2025 19:51:18 Narrative 01/17/2025 7:51 PM EDT INDICATION: pain Exam: Obstetrical ultrasound. Comparison: None Clinical history: Pelvic pain, , spotting Findings: Selected images from an obstetrical ultrasound are provided for interpretation. Transabdominal imaging was performed. Estimated gestational age by LMP is 13 weeks 1 day. Single live intrauterine . [place] rump length of 4.85, corresponding to 11 weeks 5 days. BPD corresponding to 13 weeks 2 days AC corresponding to 12 weeks 3 days FL corresponding to 12 weeks 5 days Placenta appears to be developing posteriorly. Cervical length of 4.3 cm heart rate 147 bpm. Estimated weight of 60.32 g Volume of fluid within the gestational sac appears normal. No perigestational sac hemorrhage. No free fluid. us jM Santos MD IMG OB US PROCEDURES Edited Result - Final * (ABNORMAL) POC , urine manually resulted (01/17/2025 6:36 PM EDT) HCG, Ur POC Positive(A ) Negative POC hCG Int QC Pass? Yes Yes Urine Urine specimen obtained by clean catch procedure / Unknown 01/17/2025 6:36 PM EDT us Mj Santos MD POINT OF CARE TEST ENTER/HILDA T ORDERABLES Final Result * (ABNORMAL) Urinalysis with reflex microscopic and culture (01/17/2025 5:58 PM EDT) Specific [place] Urine 1.020 1.003 - 1.030 LAB URINALYSIS - AUTOMATED METHOD 01/17/2025 6:43 PM EDT [facility] pH, Urine 7.0 5.0 - 8.0 pH LAB URINALYSIS - AUTOMATED METHOD 01/17/2025 6:43 PM [facility] Leukocytes, Urine Negative Negative LAB URINALYSIS - AUTOMATED METHOD 01/17/2025 6:43 PM [facility] Nitrite, Urine Negative Negative LAB URINALYSIS - AUTOMATED METHOD 01/17/2025 6:43 PM [facility] Protein, Urine Negative <=Trace mg/dL LAB URINALYSIS - AUTOMATED METHOD 01/17/2025 6:43 PM [facility] Glucose, Urine Negative Negative mg/dL LAB URINALYSIS - AUTOMATED METHOD 01/17/2025 6:43 PM [facility] Ketones, Urine Negative Negative mg/dL LAB URINALYSIS - AUTOMATED METHOD 01/17/2025 6:43 PM [facility] Urobilinogen , Urine 0.2 0.2 - 1.0 mg/dL LAB URINALYSIS - AUTOMATED METHOD 01/17/2025 6:43 PM [facility] Bilirubin, Urine Negative Negative LAB URINALYSIS - AUTOMATED METHOD 01/17/2025 6:43 PM [facility] Blood, Urine Negative Negative LAB URINALYSIS - AUTOMATED METHOD 01/17/2025 6:43 PM [facility] RBC, Urine 1 0 - 4 /HPF 01/17/2025 6:43 PM [facility] WBC, Urine 1 0 - 4 /HPF 01/17/2025 6:43 PM [facility] Squamous Epithelial, Urine 10 0 - 60 /LPF 01/17/2025 6:43 PM [facility] Crystals, Urine Moderate Amorphous Phosphate crystals. /LPF 01/17/2025 6:43 PM [facility] Bacteria, Urine Few(A) Negative /HPF 01/17/2025 6:43 PM EDT [facility] Hyaline Casts, Urine 1 0 - 3 /LPF 01/17/2025 6:43 PM EDT [facility] Urine Urine specimen obtained by clean catch procedure / Unknown Non-blood Collection / Unknown 01/17/2025 5:58 PM EDT 01/17/2025 6:03 PM EDT us Mj Santos MD LAB URINE ORDERABLES Final R esult Performing Organization Address City/[facility]/ZIP Co de Phone Number [facility] [address] [place] [address], [place] [phone] * Steele urine culture tube (01/17/2025 5:58 PM EDT) Extra Tube Hold for add-ons. 01/17/2025 8:01 PM EDT [facility] Comment:Auto resulted. Urine Urine specimen obtained by clean catch procedure / Unknown Non-blood Collection / Unknown 01/17/2025 5:58 PM EDT 01/17/2025 6:03 PM EDT us Mj Santos MD LAB URINE ORDERABLES Final R esult Performing Organization Address City/[facility]/ZIP Co de Phone Number [facility] [address] [place] [address], [place] [phone] * Recheck blood typing (01/17/2025 5:52 PM EDT) ABO Group O 01/17/2025 6:53 PM EDT [facility] Rh Type Negative 01/17/2025 6:53 PM EDT [facility] Blood Venous blood specimen / Unknown Venipuncture / Unknown 01/17/2025 5:52 PM EDT 01/17/2025 6:03 PM EDT us Mj Santos MD LAB BLOOD BANK TEST ORDERABL ES Final Result [facility] [address] [place] [address], * (ABNORMAL) CBC auto differential (01/17/2025 5:52 PM EDT) WBC 7.4 4.8 - 10.8 K/mcL LAB HEMETOLOGY METHOD 01/17/2025 6:09 PM EDT [facility] RBC 3.70(L) 3.80 - 4.80 M/mcL LAB HEMETOLOGY METHOD 01/17/2025 6:09 PM EDT [facility] Hemoglobin 11.9 11.5 - 16.0 g/dL LAB HEMETOLOGY METHOD 01/17/2025 6:09 PM EDT [facility] Hematocrit 35.0 35.0 - 47.0 % LAB HEMETOLOGY METHOD 01/17/2025 6:09 PM EDT [facility] MCV 93.6 79.0 - 98.0 FL LAB HEMETOLOGY METHOD 01/17/2025 6:09 PM EDT [facility] MCH 31.8 27.0 - 32.0 pcg LAB HEMETOLOGY METHOD 01/17/2025 6:09 PM EDT [facility] MCHC 34.0 32.0 - 37.0 g/dL LAB HEMETOLOGY METHOD 01/17/2025 6:09 PM EDT [facility] RDW 15.2(H) 11.0 - 15.0 % LAB HEMETOLOGY METHOD 01/17/2025 6:09 PM EDT [facility] Platelets 228 130 - 400 K/mcL LAB HEMETOLOGY METHOD 01/17/2025 6:09 PM EDT [facility] MPV 8.7 7.0 - 11.0 FL LAB HEMETOLOGY METHOD 01/17/2025 6:09 PM [facility] NRBC 0.0 <1.0 % LAB HEMETOLOGY METHOD 01/17/2025 6:09 PM [facility] NRBC Absolute 0.00 <0.10 K/mcL LAB HEMETOLOGY METHOD 01/17/2025 6:09 PM [facility] Neutrophils Relative 71.9 % LAB HEMETOLOGY METHOD 01/17/2025 6:09 PM [facility] Lymphocytes Relative 17.9 % LAB HEMETOLOGY METHOD 01/17/2025 6:09 PM [facility] Monocytes Relative 8.2 % LAB HEMETOLOGY METHOD 01/17/2025 6:09 PM [facility] Eosinophils Relative 0.9 % LAB HEMETOLOGY METHOD 01/17/2025 6:09 PM [facility] Basophils Relative 0.4 % LAB HEMETOLOGY METHOD 01/17/2025 6:09 PM [facility] Immature Granulocytes Relative 0.7 % LAB HEMETOLOGY METHOD 01/17/2025 6:09 PM [facility] Neutrophils Absolute 5.34 1.50 - 7.00 K/mcL LAB HEMETOLOGY METHOD 01/17/2025 6:09 PM [facility] Lymphocytes Absolute 1.33 1.00 - 5.00 K/mcL LAB HEMETOLOGY METHOD 01/17/2025 6:09 PM [facility] Monocytes Absolute 0.61 0.20 - 1.00 K/mcL LAB HEMETOLOGY METHOD 01/17/2025 6:09 PM [facility] Eosinophils Absolute 0.07 0.00 - 0.50 K/mcL LAB HEMETOLOGY METHOD 01/17/2025 6:09 PM [facility] Basophils Absolute 0.03 0.00 - 0.20 K/mcL LAB HEMETOLOGY METHOD 01/17/2025 6:09 PM EDT [facility] Immature Granulocytes Absolute 0.05(H) 0.00 - 0.03 K/mcL LAB HEMETOLOGY METHOD 01/17/2025 6:09 PM EDT [facility] Blood Venous blood specimen / Unknown Venipuncture / Unknown 01/17/2025 5:52 PM EDT 01/17/2025 6:03 PM EDT Mj Santos MD LAB BLOOD ORDERABLES Final R esult Performing Organization Address City/[facility]/ZIP Co de Phone Number [facility] [address] [place] [address], [place] [phone] * Kleihauer-Betke stain (01/17/2025 5:52 PM EDT) Cruz Tiwari Hemoglobin <1.00 <1.00 % 01/18/2025 12:37 AM EDT [facility] Blood Venous blood specimen / Unknown Venipuncture / Unknown 01/17/2025 5:52 PM EDT 01/17/2025 6:03 PM EDT Yolis UNDERWOOD LAB BLOOD ORDERABLES Final Resul t [facility] [address] [place] [address], [place] [phone] * ABO Rh (01/17/2025 5:52 PM EDT) ABO Group O 01/17/2025 6:53 PM EDT [facility] Rh Type Negative 01/17/2025 6:53 PM EDT [facility] Blood Venous blood specimen / Unknown Venipuncture / Unknown 01/17/2025 5:52 PM EDT 01/17/2025 6:03 PM EDT us Mj Santos MD LAB BLOOD BANK TEST ORDERABL ES Edited Result - Final [facility] [address] [place] [address], * HCG, quantitative (01/17/2025 5:52 PM EDT) hCG Quant 146,225 mIU/mL LAB CHEMISTRY METHOD 01/17/2025 6:52 PM EDT [facility] Blood Venous blood specimen / Unknown Venipuncture / Unknown 01/17/2025 5:52 PM EDT 01/17/2025 6:03 PM EDT Narrative [facility] - 01/17/2025 6:52 PM EDT Quantitative HCG Reference Ranges Time after Conception ? MIU/ML 0.2-1 Week ? 5-50 1-2 ?? Weeks ? 50-500 2-3 ?? Weeks ?100-5,000 3-4 ?? Weeks ?500-10,000 4-5 ?? Weeks ?1,000-50,000 5-6 ?? Weeks ? 10,000-100,000 6-8 ?? Weeks ? 15,000-200,000 2-3 ?? Months ?10,000-100,000 2nd Trimester ?1,000-94,000 3rd Trimester ?2,500-90,000 Non- Females ?1-3 us Mj Santos MD LAB BLOOD ORDERABLES Final R esult [facility] [address] [place] [address], * Comprehensive metabolic panel (01/17/2025 5:52 PM EDT) [facility] Sodium 137 133 - 145 mmol/L LAB CHEMISTRY METHOD 01/17/2025 6:45 PM EDT [facility] Potassium 4.0 3.5 - 5.5 mmol/L LAB CHEMISTRY METHOD 01/17/2025 6:[facility] Chloride 105 96 - 110 mmol/L LAB CHEMISTRY METHOD 01/17/2025 6:45 [facility] CO2 25 21 - 32 mmol/L LAB CHEMISTRY METHOD 01/17/2025 6:45 PM EDT [facility] Anion Gap 7 3 - 11 LAB CHEMISTRY METHOD 01/17/2025 6:45 [facility] Glucose 83 70 - 100 mg/dL LAB CHEMISTRY METHOD 01/17/2025 6:45 PM [facility] BUN 8 5 - 25 mg/dL LAB CHEMISTRY METHOD 01/17/2025 6:45 PM EDT [facility] Creatinine 0.50 0.50 - 1.10 mg/dL LAB CHEMISTRY METHOD 01/17/2025 6:45 PM [facility] eGFR 131 >=60 mL/min/1. 73m2 LAB CHEMISTRY METHOD 01/17/2025 6:45 PM EDT [facility] Comment:Calculation based on the??Chronic Kidney Disease Epidemiology Collaboration (CKD-EPI) equation refit??without adjustment for race. BUN/Creatinine Ratio 16.0 LAB CHEMISTRY METHOD 01/17/2025 6:45 PM EDT [facility] Calcium 9.5 8.5 - 10.5 mg/dL LAB CHEMISTRY METHOD 01/17/2025 6:45 PM EDT [facility] AST (SGOT) 24 10 - 42 unit/L LAB CHEMISTRY METHOD 01/17/2025 6:45 PM EDT [facility] ALT (SGPT) 31 10 - 60 unit/L LAB CHEMISTRY METHOD 01/17/2025 6:45 PM EDT [facility] Alkaline Phosphatase 77 42 - 121 unit/L LAB CHEMISTRY METHOD 01/17/2025 6:45 PM EDT [facility] Total Protein 6.8 6.0 - 8.0 g/dL LAB CHEMISTRY METHOD 01/17/2025 6:45 PM EDT [facility] Albumin 3.5 3.2 - 5.0 g/dL LAB CHEMISTRY METHOD 01/17/2025 6:45 PM EDT [facility] Total Bilirubin 0.3 0.0 - 1.4 mg/dL LAB CHEMISTRY METHOD 01/17/2025 6:45 PM EDT [facility] Blood Venous blood specimen / Unknown Venipuncture / Unknown 01/17/2025 5:52 PM EDT 01/17/2025 6:03 PM EDT Mj Santos MD LAB BLOOD ORDERABLES Final R esult [facility] [address] [place] [address], from Last 3 Months Insurance [address] [place] [id number] MEDICA[place] - [place] Care Teams Supervising Film Or Videotape Editor Relationship Specialty Start Date End Date Physician, No Pcp PCP - General 01/17/25
[2025-02-01] MEDS: Metoclopramide HCl 10 MG/2 ML VIAL IVPUSH (15:59)
[2025-02-01] MEDS: Dextrose 5 % and 0.45 % NaCl 1,000 ML 999 ML IVCONT (15:59)
[2025-02-01 16:00] VITALS: BP 94/55; PULSE 92; RESP 14; O2SAT 98
[2025-02-01 17:48] LABS: Appearance Urine Clear; Color Urine Yellow; Glucose Urine UA >=1000 mg/dL (Negative); Leukocyte Esterase Urine Negative (Negative); Nitrite Urine Negative (Negative); UMIC TRIGGER UACC YES; Urine Blood Negative (Negative); Urine Ketones Negative (Negative); Urine Protein Negative (Neg-Trace)
[2025-02-01 18:00] VITALS: BP 95/55; PULSE 106; RESP 16; O2SAT 98
[2025-02-01 18:09] LABS: Bacteria Urine None Seen (None Seen); Hyaline Casts Urine 0-2 /LPF (0-2); RBC Urine 0-2 /HPF (0-2); Squamous Epithelial Cell Urine 0-2 /HPF (0-2); WBC Urine 0-5 /HPF (0-5)
[2025-02-01 18:34] VITALS: BP 95/55; PULSE 106; RESP 16; TEMP 36.7; O2SAT 98
== END 2025-02-01 18:36 | disposition home or self-care (01) ==
PROVIDERS: Physician Assistant Medical; Emergency Provider Emergency Medicine
DX: O21.9 Vomiting of pregnancy, unspecified (principal); Z3A.14 14 weeks gestation of pregnancy; Z03.818 Encounter for observation for suspected exposure to other biological agents ruled out
CPT/HCPCS: 0241U; 36415; 80053; 81001; 83735; 85025; 96365; 96366; 96375; 99284; J2765